=== PATIENT | female | born 1975 | race Caucasian/White ===

== ENCOUNTER 2016-08-23 08:48 | Emergency (ER) | payer OTHER ==
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
[~2016-08-23 08:48] MED LIST: BACTRIM DS TABL1 TA1 PO; MEDROL4 MG/DOSE- PO; NORFLEX100 M1 PO; PYRIDIUM100 MG PO; RELAFEN PO; VOLTAREN75 MG PO
== END 2016-08-23 10:06 | disposition home or self-care (01) ==
LOC: SED 08:48
DX: S01.01XA Laceration without foreign body of scalp, initial encounter (principal); S46.912A Strain of unspecified muscle, fascia and tendon at shoulder and upper arm level, left arm, initial encounter; E11.9 Type 2 diabetes mellitus without complications; I10 Essential (primary) hypertension; V49.60XA Unspecified car occupant injured in collision with unspecified motor vehicles in traffic accident, initial encounter; Z23 Encounter for immunization
CPT/HCPCS: 12001; 70450; 73030; 90471; 90715; 99284